=== PATIENT | male | born 1955 | race Caucasian/White ===

== ENCOUNTER 2017-08-17 15:00 | Inpatient (IN) | payer MEDICARE, MEDICAID ==
[2017-08-17 15:35] LABS: BASOPHILS % (AUTO) 0.4 %; EOSINOPHILS % (AUTO) 0.6 %; HGB - HEMOGLOBIN 8.3 g/dL (14.0-18.0); LYMPHOCYTES # (AUTO) 1.7 10^3/uL (1.5-3.5); LYMPHOCYTES % (AUTO) 30.8 %; MEAN CORPUSCULAR HEMOGLOBIN 32.3 pg (27.0-31.0); MEAN CORPUSCULAR HGB CONC 34.6 g/dL (32.0-36.0); MEAN CORPUSCULAR VOLUME 93.5 fL (80.0-94.0); MEAN PLATELET VOLUME 7.3 fL (7.4-11.4); MONOCYTES # (AUTO) 0.5 10^3/uL (0.0-1.0); MONOCYTES % (AUTO) 8.1 %; NEUTROPHILS # (AUTO) 3.4 10^3/uL (1.5-6.6); NEUTROPHILS % (AUTO) 60.1 %; PLT - PLATELET COUNT 212 10^3/uL (130-450); RED BLOOD COUNT 2.57 10^6/uL (4.70-6.10); RED CELL DISTRIBUTION WIDTH 13.3 % (12.0-15.0); WHITE BLOOD COUNT 5.6 x10^3/uL (4.8-10.8)
[2017-08-17 15:43] LABS: ALBUMIN/GLOBULIN RATIO 1.4 (1.0-2.2); BILIRUBIN,TOTAL 0.5 mg/dL (0.2-1.0); CALCIUM 8.7 mg/dL (8.5-10.3); CREATININE 0.7 mg/dL (0.6-1.2); TOTAL PROTEIN 6.9 g/dL (6.7-8.2)
[2017-08-17 17:30] LABS: INR 1.1 (0.8-1.2); PT - PROTHROMBIN TIME 12.7 secs (9.9-12.6)
[2017-08-17] MEDS ORDERED: PANTOPRAZOLE 40 MG VIAL IVP STA (17:47)
--- NOTE | 2017-08-17 17:47 | ED Physician Documentation ---
PD HPI GI BLEED - Stated complaint Stated Complaint: SOA/FATIGUE/ABD BLOATING - Chief complaint Chief Complaint: General - History obtained from History obtained from: Patient, Family - History of Present Illness Timing - onset: How many days ago (3) Timing - duration: Days (3) Timing - details: Gradual onset Pain level max: 0 Pain level now: 0 Associated symptoms: Black/tarry stool Contributing factors: No: Sick contact, Bad food, Travel, Recent antibiotics, Alcohol use, Aspirin use, NSAID use, Stress, Anticoagulated, Diabetes Improved by: Other (rest) Worsened by: Other (walking) Similar symptoms before: Has not had sx before Recently seen: Not recently seen - Additional information Additional information: Patient is a 61-year-old male who presents to the emergency department with dark tarry stools for the past several days. Now unable to walk more than a few feet without feeling short of breath and having to stop. States he had a colonoscopy approximately 17 years ago that was normal. Does not currently have a PCP. Is on no medications. Review of Systems Ten Systems: 10 systems reviewed and negative Constitutional: denies: Fever, Chills Ears: denies: Ear pain Nose: denies: Rhinorrhea / runny nose, Congestion Throat: denies: Sore throat Skin: denies: Rash Musculoskeletal: denies: Neck pain, Back pain Neurologic: reports: Generalized weakness. denies: Headache PD PAST MEDICAL HISTORY - Past Medical History Past Medical History: Yes Psych: Anxiety - Present Medications Home Medications: Ambulatory Orders Medication Instructions Recorded Confirmed No Known Home Medications [No 08/17/17 08/17/17 Known Home Medications] - Allergies Allergies/Adverse Reactions: Allergies Allergy/AdvReac Type Severity Reaction Status Date / Time carisoprodol [From Soma] Allergy Anaphylaxis Verified 08/17/17 19:22 fenoprofen [From Nalfon] Allergy Anaphylaxis Verified 08/17/17 19:23 - Social History Does the pt smoke?: No Smoking Status: Never smoker PD ED PE NORMAL - Vitals Vital signs reviewed: Yes - General General: Alert and oriented X 3, No acute distress, Well developed/nourished - HEENT HEENT: PERRL, Moist mucous membranes - Neck Neck: Supple, no meningeal sign - Cardiac Cardiac: RRR, Strong equal pulses - Respiratory Respiratory: No respiratory distress, Clear bilaterally - Abdomen Abdomen: Soft, Non tender, Non distended - Rectal Rectal: Other (+ hemoccult, QC passed. Dark stool.) - Derm Derm: Warm and dry - Extremities Extremities: No edema - Neuro Neuro: Alert and oriented X 3 - Psych Psych: Normal mood, Normal affect Results - Vitals Vitals: Vital Signs - 24 hr 08/17/17 15:10 Temperature 37.0 C Heart Rate 72 Respiratory 14 Rate Blood Pressure 127/89 H O2 Saturation 100 Oxygen O2 Source Room air - EKG (time done) 1519 Rate: Rate (enter#) (70) Rhythm: NSR [place]: Normal Intervals: Normal [place] QRS: Normal Ischemia: Normal ST segments Computer interpretation: Agree with computer - Labs Labs: Laboratory Tests 08/17/17 08/17/17 08/17/17 15:24 15:24 15:24 WBC 5.6 RBC 2.57 L Hgb 8.3 L Hct 24.1 L MCV 93.5 MCH 32.3 H MCHC 34.6 RDW 13.3 Plt Count 212 MPV 7.3 L Neut # 3.4 Lymph # 1.7 [place] # 0.5 Eos # 0.0 Baso # 0.0 Absolute Nucleated RBC 0.00 Nucleated RBC % 0.0 PT INR APTT Sodium 135 Potassium 3.4 L Chloride 102 Carbon Dioxide 24 Anion Gap 9.0 BUN 18 Creatinine 0.7 Estimated GFR (MDRD) 114 Glucose 105 H Calcium 8.7 Total Bilirubin 0.5 AST 25 ALT 40 Alkaline Phosphatase 46 Troponin I < 0.04 Total Protein 6.9 Albumin 4.0 Globulin 2.9 Albumin/Globulin Ratio 1.4 Lipase 24 Urine Color Urine Clarity Urine pH Ur Specific [place] Urine Protein Urine Glucose (UA) Urine Ketones Urine Occult Blood Urine Nitrite Urine Bilirubin Urine Urobilinogen Ur Leukocyte Esterase Ur Microscopic Review Urine Culture Comments Blood Type Antibody Screen 08/17/17 08/17/17 08/17/17 15:24 17:09 17:40 WBC RBC Hgb Hct MCV MCH MCHC RDW Plt Count MPV Neut # Lymph # [place] # Eos # Baso # Absolute Nucleated RBC Nucleated RBC % PT 12.7 H INR 1.1 APTT 27.6 Sodium Potassium Chloride Carbon Dioxide Anion Gap BUN Creatinine Estimated GFR (MDRD) Glucose Calcium Total Bilirubin AST ALT Alkaline Phosphatase Troponin I Total Protein Albumin Globulin Albumin/Globulin Ratio Lipase Urine Color YELLOW Urine Clarity CLEAR Urine pH 5.5 Ur Specific [place] 1.025 Urine Protein NEGATIVE Urine Glucose (UA) NEGATIVE Urine Ketones NEGATIVE Urine Occult Blood NEGATIVE Urine Nitrite NEGATIVE Urine Bilirubin NEGATIVE Urine Urobilinogen 0.2 (NORMAL) Ur Leukocyte Esterase NEGATIVE Ur Microscopic Review NOT INDICATED Urine Culture Comments NOT INDICATED Blood Type O POSITIVE Antibody Screen NEGATIVE PD MEDICAL DECISION MAKING - ED course Complexity details: reviewed results, re-evaluated patient, considered differential, d/w patient, d/w database consultant ED course: Patient is a 61-year-old gentleman who presents to the emergency department with increasing weakness and difficulty breathing with only a few steps. Appears to be symptomatic anemia from a GI bleed. Likely upper GI bleed. Given Protonix here. Type and screened. Discussed the case with Dr. Feliz, general surgery on-call who will consult. Also discussed the case with the hospitalist who accepts. This document was made in part using voice recognition software. While efforts are made to proofread this document, sound alike and grammatical errors may occur. Departure - Departure Disposition: 64 [facility] DC/Xfer Clinical Impression: Symptomatic anemia GI bleed Qualifiers: GI bleed type/associated pathology: melena Qualified Code(s): K92.1 - Melena Condition: Stable Discharge Date/Time: 08/17/17 19:05
[2017-08-17 17:54] LABS: BILIRUBIN,URINE NEGATIVE (NEGATIVE); GLUCOSE, URINE (UA) NEGATIVE (NEGATIVE); KETONES,URINE (UA) NEGATIVE (NEGATIVE); LEUKOCYTE ESTERASE, URINE NEGATIVE (NEGATIVE); NITRITE,URINE NEGATIVE (NEGATIVE); OCCULT BLOOD,URINE NEGATIVE (NEGATIVE); PH,URINE 5.5 PH (5.0-7.5); PROTEIN,URINE NEGATIVE (NEGATIVE); UROBILINOGEN,URINE 0.2 (NORMAL) E.U./dL (NORMAL)
[2017-08-17 17:55] LABS: CLARITY,URINE CLEAR (CLEAR)
[2017-08-17] MEDS ORDERED: TEMAZEPAM 15 MG CAPSULE PO PRN (18:09)
[2017-08-17] MEDS ORDERED: MORPHINE 2 MG/ML SYRINGE IVP PRN (18:09)
[2017-08-17] MEDS ORDERED: PROCHLORPERAZINE 10 MG/2 ML VIAL IVP PRN (18:09)
[2017-08-17] MEDS ORDERED: BISACODYL 5 MG TABLET PO SCH (19:01)
--- NOTE | 2017-08-17 19:10 | CONSULTATION NOTE ---
Referring Provider Name of Referring Provider:: Dr. Zhang Consult Date: 08/17/17 Chief Complaint - Chief Complaint Chief Complaint: Black stools and fatigue History of Present Illness - Admitted From Admitted From:: ER - History Obtained From Records Reviewed: yes History obtained from: pt Exam Limitations: none - History of Present Illness HPI Comment/Other: 61 yo male with hx of black tarry stools beginning 5 days ago, one per day, until 2 days ago, when he noted no further bms. He noted progressive fatigue and weakness, with some abdominal bloating, but no BRBPR, N/V, hematemesis, food intolerance, hx PUD, or wt loss. He reports using aspirin 325-650 mg orally approximately 3 x per week for joint aches. He denies other use of NSAIDs , prednisone, tobacco. Alcohol intake is less than 1 beer/day. FH colon cancer in his father, diagnosed at unknown age. His only prior colonoscopy was in 2003 and was reportedly nl. No prior similar sx. History - Past Medical History Respiratory: reports: Asthma (mild, takes no meds for this) Neuro: reports: None Endocrine/Autoimmune: reports: None GI: reports: None. denies: GERD, Ulcers, Colon polyps, Chronic diarrhea, Chronic constipation, Hepatitis Psych: reports: Anxiety Musculoskeletal: reports: Osteoarthritis MRSA Hx?: No - Past Surgical History General: reports: Colonoscopy (2004, [facility], OR, nl) Ortho: reports: Other (foot surgery, left index finger ORIF.) Cardiovascular: reports: Cardiac catheterization (in 2003, reportedly neg.) - Family & Social History Family History: Father: (colon cancer) Living arrangement: At home Living Situation: With friend(s) - Substance History Use: Uses substance without health or social issues: Alcohol Abuse: Recurrent use of substance despite neg consequences: NONE Dependence: Experiences withdrawal or developed tolerances: NONE - POLST Patient has POLST: No POLST Status: Full Code Meds/Allgy - Home Medications Home Medications: Ambulatory Orders Medication Instructions Recorded Confirmed No Known Home Medications [No 08/17/17 08/17/17 Known Home Medications] - Allergies Allergies/Adverse Reactions: Allergies Allergy/AdvReac Type Severity Reaction Status Date / Time carisoprodol [From Soma] Allergy Anaphylaxis Verified 08/17/17 19:22 fenoprofen [From Nalfon] Allergy Anaphylaxis Verified 08/17/17 19:23 Review of Systems - Constitutional Constitutional: reports: Fatigue, Malaise - Cardiovascular Cariovascular: reports: Exertional dyspnea (past few days). denies: Chest pain , Syncope - Respiratory Respiratory: denies: Cough, Hemoptysis - Gastrointestinal Gastrointestinal: reports: Abdominal distention, Black stools, Bloating. denies : Abdominal pain, Constipation, Diarrhea, Rectal bleeding, Bloody stools, Nausea , Vomiting, Coffee grounds emesis, Reflux/heartburn - Musculoskeletal Musculoskeletal: reports: Joint pain - Hematologic/Lymphatic Hematologic/Lymphatic: denies: Bruising, Blood clots, Bleeding tendencies - All Other Systems All Other Systems: reports: Reviewed and negative Exam - Vital Signs Vital Signs: Vital Signs x48h Temp Pulse Pulse Resp BP BP Pulse Ox 08/17/17 19:02 36.7 C 62 18 132/70 H 100 08/17/17 15:10 37.0 C 72 14 127/89 H 100 - Physical Exam General Appearance: positive: No acute distress, Alert Eyes Bilateral: positive: Conjunctivae nml, No scleral icterus ENT: positive: Pharynx nml, No signs of dehydration. negative: Pharyngeal erythema Neck: positive: Nml inspection. negative: Lymphadenopathy (R), Lymphadenopathy (L) Respiratory: positive: Chest non-tender, No respiratory distress, Breath sounds nml. negative: Wheezes, Rales, Rhonchi Cardiovascular: positive: Regular rate & rhythm, No murmur, No gallop Peripheral Pulses: positive: 2+ Abdomen: positive: Non-tender, No organomegaly, Nml bowel sounds, No distention. negative: Tenderness, Guarding, Rebound, Hepatomegaly, Splenomegaly , Mass Rectal: positive: Stool - heme POS Back: positive: Nml inspection. negative: CVA tenderness (R), CVA tenderness (L ) Skin: positive: Warm, Dry, Pallor. negative: Cyanosis Extremities: positive: Non-tender, No pedal edema. negative: Calf tenderness Neurologic/Psychiatric: positive: Oriented x3 Conclusion/Plan - Diagnosis Diagnosis: 1. GI bleed/melena, clinically stable at this time with no evidence of active bleeding. Upper and lower gi sources should be considered, including PUD, H.pylori gastritis, NSAID gastropathy, upper/lower gi tract neoplasm, angiodysplasia, etc. 2. Anemia, due to blood loss, sx. 3. FH Colon ca in 1st degree relative; this may increase his risk for same. - Plan Plan: Rec: bowel prep tonight for EGD/colon tomorrow. Consider empiric PPI therapy in interim. Transfuse as necessary for sx or worsening anemia. Thanks for allowing me to participate in Mr. Escobar's care. - Lab Results Fish Bones: 08/17/17 15:24 08/17/17 15:24
[2017-08-17] MEDS: D5.45NS W/20 MEQ KCL 1,000 ML IV SCH (19:15)
--- NOTE | 2017-08-17 19:24 | HISTORY & PHYSICAL EXAMINATION ---
Chief Complaint - Chief Complaint Chief Complaint: shortness of breath History of Present Illness - Admitted From Admitted From:: Home - History Obtained From Records Reviewed: yes History obtained from: patient, ER physician Exam Limitations: none noted - History of Present Illness HPI Comment/Other: Mr. Christophe Roy is a very pleasant 61-year-old gentleman who has a history of shortness of breath and weakness over the last several days. He also noticed he has been having dark tarry stools for the last couple of weeks this seems to wax and wane. The patient's last colonoscopy was about 15 years ago. When he had increasing shortness of breath that did not go away he presented to the [facility] emergency department where he was diagnosed with anemia and a hemoglobin of 8. Of note ids that the patient's father of colon cancer. He is admitted for symptom management and for an upper and lower endoscopy which will be done tomorrow with Dr. Kvng Feliz. History - Past Medical History Respiratory: reports: Asthma (mild, takes no meds for this) Neuro: reports: None Endocrine/Autoimmune: reports: None GI: reports: None. denies: GERD, Ulcers, Colon polyps, Chronic diarrhea, Chronic constipation, Hepatitis Psych: reports: Anxiety Musculoskeletal: reports: Osteoarthritis MRSA Hx?: No - Past Surgical History General: reports: Colonoscopy (2004, [facility], OR, nl) Ortho: reports: Other (foot surgery, left index finger ORIF.) Cardiovascular: reports: Cardiac catheterization (in 2003, reportedly neg.) - Family & Social History Family History: Mother: (colon cancer), Father: Family History Comment/Other: The patient says he does not know very much more about his family history as his family does not talk about such things. He does not know how his mother . Living arrangement: At home Living Situation: With friend(s) - Substance History Use: Uses substance without health or social issues: Alcohol Abuse: Recurrent use of substance despite neg consequences: NONE Dependence: Experiences withdrawal or developed tolerances: NONE - POLST Patient has POLST: No POLST Status: Full Code Meds/Allgy - Home Medications Home Medications: Ambulatory Orders Medication Instructions Recorded Confirmed No Known Home Medications [No 08/17/17 08/17/17 Known Home Medications] - Allergies Allergies/Adverse Reactions: Allergies Allergy/AdvReac Type Severity Reaction Status Date / Time Unable to Assess Allergy Verified 08/17/17 15:14 Review of Systems - Constitutional Constitutional: reports: Fatigue, Weakness. denies: Fever, Chills, Malaise - Eyes Eyes: denies: Pain, Irritation, Amaurosis, Blurred vision, Dipolpia - Ears, Nose & Throat Ears, Nose & Throat: denies: Ear pain, Tinnitus, Vertigo, Nasal discharge, Sore throat - Cardiovascular Cariovascular: reports: Exertional dyspnea, Decr. exercise tolerance - Respiratory Respiratory: reports: SOB at rest, SOB with exertion. denies: Cough, Sputum production, Wheezing, Hemoptysis - Gastrointestinal Gastrointestinal: denies: Abdominal pain, Constipation, Diarrhea, Change in bowel habits, Rectal bleeding - Genitourinary Genitourinary: denies: Dysuria, Frequency, Urgency, Hematuria - Musculoskeletal Musculoskeletal: denies: Muscle pain, Back pain, Muscle aches, Stiffness - Integumentary Integumentary: denies: Rash, Pruritis, Lesions, Dryness - Neurological Neurological: denies: General weakness, Focal weakness, Headache, Dizziness - Psychiatric Psychiatric: denies: Depression, Anxiety, Suicidal, Hallucinations - Endocrine Endocrine: denies: Polyuria, Polydypsia, Polyphagia - Hematologic/Lymphatic Hematologic/Lymphatic: denies: Anemia, Bruising, Petechiae, Lymphadenopathy - All Other Systems All Other Systems: reports: Reviewed and negative Exam - Vital Signs Reviewed Vital Signs: Yes Vital Signs: Vital Signs x48h Temp Pulse Pulse Resp BP BP Pulse Ox 08/17/17 19:02 36.7 C 62 18 132/70 H 100 08/17/17 15:10 37.0 C 72 14 127/89 H 100 - Physical Exam General Appearance: positive: No acute distress, Alert Eyes Bilateral: positive: Normal inspection, PERRL, EOMI, No lid inflammation, No scleral icterus, Other (Conjunctivae is pale) ENT: positive: ENT inspection nml, Pharynx nml, No signs of dehydration Neck: positive: Nml inspection, Thyroid nml, No JVD, Trachea midline. negative : Thyromegaly Respiratory: positive: Chest non-tender, No respiratory distress, Breath sounds nml. negative: Wheezes, Rales, Rhonchi Cardiovascular: positive: Regular rate & rhythm, No murmur, No gallop Peripheral Pulses: positive: 1+ Abdomen: positive: Non-tender, No organomegaly, Nml bowel sounds, No distention. negative: Guarding, Rebound, Mass Rectal: positive: Stool - heme POS Back: positive: Nml inspection. negative: CVA tenderness (R), CVA tenderness (L ) Skin: positive: Color nml, No rash, Warm, Dry. negative: Cyanosis Extremities: positive: Non-tender, Full ROM, Nml appearance, No pedal edema Neurologic/Psychiatric: positive: Oriented x3, CN's nml (2-12), Motor nml, Sensation nml, Mood/affect nml Conclusion/Plan - Problem List (1) GI bleed Conclusion/Plan: Patient will undergo an upper and lower endoscopy with Dr. Kvng Feliz tomorrow. We will address any other issues that arise following the procedure. Qualifiers: GI bleed type/associated pathology: melena Qualified Code(s): K92.1 - Melena (2) Symptomatic anemia Conclusion/Plan: We will place the patient in her medical surgical bed on supplemental oxygen and If necessary we will transfuse the patient. - Lab Results Lab results reviewed: Yes Fish Bones: 08/17/17 15:24 08/17/17 15:24 Core Measures - Anticipated LOS I expect patient to be DC'd or transferred within 96 hours.: Yes - DVT/VTE - Prophylaxis VTE/DVT Device ordered at admit?: Yes
[2017-08-17] MEDS ORDERED: POLYETHYLENE GLYCOL 3350 17 GM PACKET PO SCH (20:00)
[2017-08-17] MEDS ORDERED: FAMOTIDINE 20 MG/50 ML 50 ML IV SCH (21:00)
[2017-08-17] MEDS: SODIUM/POTASSIUM/MAG SULFATES 354 ML PREP KIT PO SCH (21:26)
[2017-08-18] MEDS: SODIUM CHLORIDE FLUSH 0.9% 10 ML SYRINGE IVP SCH ×3 (00:58→20:23)
[2017-08-18 05:05] LABS: BASOPHILS % (AUTO) 0.6 %; EOSINOPHILS # (AUTO) 0.1 10^3/uL (0.0-0.7); EOSINOPHILS % (AUTO) 1.8 %; HGB - HEMOGLOBIN 7.6 g/dL (14.0-18.0); LYMPHOCYTES % (AUTO) 43.9 %; MEAN CORPUSCULAR HEMOGLOBIN 32.4 pg (27.0-31.0); MEAN CORPUSCULAR HGB CONC 34.4 g/dL (32.0-36.0); MEAN PLATELET VOLUME 7.5 fL (7.4-11.4); MONOCYTES # (AUTO) 0.4 10^3/uL (0.0-1.0); MONOCYTES % (AUTO) 9.6 %; NEUTROPHILS % (AUTO) 44.1 %; PLT - PLATELET COUNT 182 10^3/uL (130-450); RED BLOOD COUNT 2.34 10^6/uL (4.70-6.10); RED CELL DISTRIBUTION WIDTH 13.1 % (12.0-15.0); WHITE BLOOD COUNT 4.5 x10^3/uL (4.8-10.8)
[2017-08-18] MEDS: SODIUM/POTASSIUM/MAG SULFATES 354 ML PREP KIT PO SCH (05:10)
[2017-08-18 05:11] LABS: CALCIUM 8.4 mg/dL (8.5-10.3); CREATININE 0.8 mg/dL (0.6-1.2)
[2017-08-18] MEDS: D5.45NS W/20 MEQ KCL 1,000 ML IV SCH ×2 (06:40→14:53)
[2017-08-18] MEDS: PANTOPRAZOLE 40 MG VIAL IVP SCH ×2 (08:18→20:23)
[2017-08-18] MEDS ORDERED: POLYETHYLENE GLYCOL 3350 17 GM PACKET PO SCH (09:00)
[2017-08-18] MEDS ORDERED: PROPOFOL 200 MG/20 ML VIAL IVP ONE (12:00)
[2017-08-18] MEDS ORDERED: LIDOCAINE-MPF 2% 5 ML VIAL IM ONE (12:00)
[2017-08-18] MEDS ORDERED: LACTATED RINGERS 1,000 ML IV ONE (12:04)
--- NOTE | 2017-08-18 16:06 | PROVIDER PROGRESS NOTE ---
Assessment/Plan - Problem List (1) GI bleed Qualifiers: GI bleed type/associated pathology: melena Qualified Code(s): K92.1 - Melena Assessment/Plan: patient presented with melena, generalized weakness and shortness of breath Hb was 8.3 on presentation Concern for likely GI bleed SUrgery consulted Patient on IV protonix BID Hb this morning down to 7.6 Transfuse if hb less than 7 EGD and colonoscopy today Will continue IV protonix for 24 more hours and monitor H&H Stools appear to be brown this am (2) Symptomatic anemia Assessment/Plan: Secondary to GI bleed Monitor hb if less than 7 transfuse Treat as per number 1 - Current Meds Current Meds: Current Medications Generic Name Dose Route Start Last Admin Trade Name Freq PRN Reason Stop Dose Admin Potassium Chloride/Dextrose/Sod Cl 1,000 mls @ 100 mls/hr 08/17/17 19:00 14:53 D5.45ns W/20 Meq Kcl IV 100 mls/hr .Q10H JACINTO Administration Pantoprazole Sodium 40 mg 08/18/17 09:00 08/18/17 08:18 Protonix IVP 40 mg BID JACINTO Administration Sodium Chloride 10 ml 08/18/17 01:00 08/18/17 08:18 Normal Saline Flush 0.9% IVP 10 ml [id number] JACINTO Administration - Lab Result Lab results reviewed: Yes Fish Bone Diagrams: 08/18/17 04:40 08/18/17 04:25 - Additional Planning Condition/Complexity: Guarded My Orders: My Active Orders 08/18/17 09:00 Pantoprazole [Protonix] 40 mg IVP BID Consult/Specialty: Surgery Plan Discussed with:: Patient Time Spent: 31-60 minutes Subjective - Subjective Patient Reports: Dizzines (Improved), Fatigue, Shortness of Breath (With exertion), Other (Stools were brown this am no bloody stools overnight.) Nursing Reports: No Complaints Objective Vital Signs: Vital Signs - 24 hr 08/17/17 08/17/17 08/18/17 19:02 23:35 08:00 Temperature 36.7 C 36.6 C 36.6 C Heart Rate [ 62 61 65 Radial] Respiratory 18 18 18 Rate Blood Pressure 132/70 H 124/75 106/69 [Right Brachial artery] O2 Saturation 100 98 98 08/18/17 08/18/17 08/18/17 12:53 12:58 13:03 Temperature Heart Rate [ Radial] Respiratory Rate Blood Pressure [Right Brachial artery] O2 Saturation 100 98 98 08/18/17 08/18/17 08/18/17 13:08 13:19 14:30 Temperature 36.3 C L 36.4 C L Heart Rate [ 58 L 56 L Radial] Respiratory 16 18 Rate Blood Pressure 104/64 98/62 [Right Brachial artery] O2 Saturation 100 100 100 08/18/17 08/18/17 14:31 15:25 Temperature 36.4 C L 36.4 C L Heart Rate [ 61 65 Radial] Respiratory 17 18 Rate Blood Pressure 115/66 119/64 [Right Brachial artery] O2 Saturation 99 100 Oxygen O2 Source Room air I&O (Last 24 Hrs): Intake and Output Totals x24h 08/16/17 08/17/17 08/18/17 23:59 23:59 23:59 Intake Total 790 1633 Balance 790 1633 General: Alert, Oriented x3, Cooperative, No acute distress HEENT: Atraumatic, PERRLA, EOMI, Other (Dry mucus membranes) Neck: Supple, No JVD, No thyromegaly, +2 carotid pulse wo bruit Lymphatic: no adenopathy Neuro: Alert, Non Focal, CN 2-12 Grossly Intact, Oriented Times 3 Cardiovascular: Regular rate, Normal S1, Normal S2, No murmurs Respiratory: Chest non-tender, No respiratory distress, Breath sounds nml Abdomen: Normal bowel sounds, Soft, No tenderness, No hepatospenomegaly, No masses Extremities: No clubbing, No cyanosis, No edema, Normal pulses Skin: No rashes, No breakdown Comments/Notes: Pallor - Results Results: Laboratory Results WBC 4.5 x10^3/uL (4.8-10.8) L 08/18/17 04:40 RBC 2.34 10^6/uL (4.70-6.10) L 08/18/17 04:40 Hgb 7.6 g/dL (14.0-18.0) L 08/18/17 04:40 Hct 22.0 % (42.0-52.0) L 08/18/17 04:40 MCV 94.0 fL (80.0-94.0) 04/17/18 04:40 MCH 32.4 pg (27.0-31.0) H 08/18/17 04:40 MCHC 34.4 g/dL (32.0-36.0) 08/18/17 04:40 RDW 13.1 % (12.0-15.0) 08/18/17 04:40 Plt Count 182 10^3/uL (130-450) 08/18/17 04:40 MPV 7.5 fL (7.4-11.4) 08/18/17 04:40 Neut # 2.0 10^3/uL (1.5-6.6) 08/18/17 04:40 Lymph # 2.0 10^3/uL (1.5-3.5) 08/18/17 04:40 [place] # 0.4 10^3/uL (0.0-1.0) 08/18/17 04:40 Eos # 0.1 10^3/uL (0.0-0.7) 08/18/17 04:40 Baso # 0.0 10^3/uL (0.0-0.1) 08/18/17 04:40 Absolute Nucleated RBC 0.00 x10^3/uL 08/18/17 04:40 Nucleated RBC % 0.0 /100WBC 08/18/17 04:40 PT 12.7 secs (9.9-12.6) H 08/17/17 15:24 INR 1.1 (0.8-1.2) 08/17/17 15:24 APTT 27.6 secs (24.9-33.3) 08/17/17 15:24 Sodium 138 mmol/L (135-145) 08/18/17 04:25 Potassium 3.5 mmol/L (3.5-5.0) 08/18/17 04:25 Chloride 105 mmol/L (101-111) 08/18/17 04:25 Carbon Dioxide 27 mmol/L (21-32) 08/18/17 04:25 Anion Gap 6.0 (6-13) 08/18/17 04:25 BUN 13 mg/dL (6-20) 08/18/17 04:25 Creatinine 0.8 mg/dL (0.6-1.2) 08/18/17 04:25 Estimated GFR (MDRD) 98 (>89) 08/18/17 04:25 Glucose 108 mg/dL (70-100) H 08/18/17 04:25 Calcium 8.4 mg/dL (8.5-10.3) L 08/18/17 04:25 Total Bilirubin 0.5 mg/dL (0.2-1.0) 08/17/17 15:24 AST 25 IU/L (10-42) 08/17/17 15:24 ALT 40 IU/L (10-60) 08/17/17 15:24 Alkaline Phosphatase 46 IU/L (42-121) 08/17/17 15:24 Troponin I < 0.04 ng/mL (<0.49) 08/17/17 15:24 Total Protein 6.9 g/dL (6.7-8.2) 08/17/17 15:24 Albumin 4.0 g/dL (3.2-5.5) 08/17/17 15:24 Globulin 2.9 g/dL (2.1-4.2) 08/17/17 15:24 Albumin/Globulin Ratio 1.4 (1.0-2.2) 08/17/17 15:24 Lipase 24 U/L (22-51) 08/17/17 15:24 Urine Color YELLOW 08/17/17 17:40 Urine Clarity CLEAR (CLEAR) 08/17/17 17:40 Urine pH 5.5 PH (5.0-7.5) 08/17/17 17:40 Ur Specific [place] 1.025 (1.002-1.030) 08/17/17 17:40 Urine Protein NEGATIVE mg/dL (NEGATIVE) 08/17/17 17:40 Urine Glucose (UA) NEGATIVE mg/dL (NEGATIVE) 08/17/17 17:40 Urine Ketones NEGATIVE mg/dL (NEGATIVE) 08/17/17 17:40 Urine Occult Blood NEGATIVE (NEGATIVE) 08/17/17 17:40 Urine Nitrite NEGATIVE (NEGATIVE) 08/17/17 17:40 Urine Bilirubin NEGATIVE (NEGATIVE) 08/17/17 17:40 Urine Urobilinogen 0.2 (NORMAL) E.U./dL (NORMAL) 08/17/17 17:40 Ur Leukocyte Esterase NEGATIVE (NEGATIVE) 08/17/17 17:40 Ur Microscopic Review NOT INDICATED 08/17/17 17:40 Urine Culture Comments NOT INDICATED 08/17/17 17:40 Blood Type O POSITIVE 08/17/17 17:09 Antibody Screen NEGATIVE 08/17/17 17:09
[2017-08-18 20:41] LABS: BASOPHILS % (AUTO) 0.5 %; EOSINOPHILS # (AUTO) 0.1 10^3/uL (0.0-0.7); EOSINOPHILS % (AUTO) 1.6 %; HGB - HEMOGLOBIN 7.7 g/dL (14.0-18.0); LYMPHOCYTES # (AUTO) 1.8 10^3/uL (1.5-3.5); LYMPHOCYTES % (AUTO) 39.2 %; MEAN CORPUSCULAR HEMOGLOBIN 32.6 pg (27.0-31.0); MEAN CORPUSCULAR HGB CONC 34.3 g/dL (32.0-36.0); MEAN PLATELET VOLUME 7.3 fL (7.4-11.4); MONOCYTES # (AUTO) 0.4 10^3/uL (0.0-1.0); MONOCYTES % (AUTO) 9.5 %; NEUTROPHILS # (AUTO) 2.3 10^3/uL (1.5-6.6); NEUTROPHILS % (AUTO) 49.2 %; PLT - PLATELET COUNT 203 10^3/uL (130-450); RED BLOOD COUNT 2.38 10^6/uL (4.70-6.10); RED CELL DISTRIBUTION WIDTH 13.4 % (12.0-15.0); WHITE BLOOD COUNT 4.6 x10^3/uL (4.8-10.8)
[2017-08-19] MEDS: SODIUM CHLORIDE FLUSH 0.9% 10 ML SYRINGE IVP SCH ×2 (00:14→07:28)
[2017-08-19] MEDS: SODIUM CHLORIDE FLUSH 0.9% 10 ML SYRINGE IVP PRN ×2 (00:25→09:27)
[2017-08-19] MEDS: D5.45NS W/20 MEQ KCL 1,000 ML IV SCH (01:36)
[2017-08-19 04:41] LABS: BASOPHILS % (AUTO) 0.3 %; EOSINOPHILS # (AUTO) 0.1 10^3/uL (0.0-0.7); EOSINOPHILS % (AUTO) 2.1 %; HGB - HEMOGLOBIN 7.6 g/dL (14.0-18.0); LYMPHOCYTES # (AUTO) 1.9 10^3/uL (1.5-3.5); LYMPHOCYTES % (AUTO) 36.9 %; MEAN CORPUSCULAR HEMOGLOBIN 32.8 pg (27.0-31.0); MEAN CORPUSCULAR HGB CONC 34.5 g/dL (32.0-36.0); MEAN CORPUSCULAR VOLUME 95.1 fL (80.0-94.0); MEAN PLATELET VOLUME 7.9 fL (7.4-11.4); MONOCYTES # (AUTO) 0.5 10^3/uL (0.0-1.0); MONOCYTES % (AUTO) 8.7 %; NEUTROPHILS # (AUTO) 2.7 10^3/uL (1.5-6.6); PLT - PLATELET COUNT 181 10^3/uL (130-450); RED BLOOD COUNT 2.33 10^6/uL (4.70-6.10); WHITE BLOOD COUNT 5.2 x10^3/uL (4.8-10.8)
[2017-08-19 04:52] LABS: ALBUMIN 3.2 g/dL (3.2-5.5); ALBUMIN/GLOBULIN RATIO 1.4 (1.0-2.2); ALKALINE PHOSPHATASE 46 IU/L (42-121); ALT ALANINE AMINOTRANSFERASE 23 IU/L (10-60); AST ASPARTATE AMINOTRANSFERASE 20 IU/L (10-42); BILIRUBIN,TOTAL 0.5 mg/dL (0.2-1.0); BUN - BLOOD UREA NITROGEN 12 mg/dL (6-20); CALCIUM 8.5 mg/dL (8.5-10.3); CARBON DIOXIDE - CO2 26 mmol/L (21-32); CHLORIDE 108 mmol/L (101-111); CREATININE 0.8 mg/dL (0.6-1.2); GFR - MDRD 98 (>89); GLUCOSE 115 mg/dL (70-100); SODIUM 138 mmol/L (135-145); TOTAL PROTEIN 5.5 g/dL (6.7-8.2)
--- NOTE | 2017-08-19 08:09 | Discharge Plan ---
Discharge Plan Disposition: 01 Home, Self Care Condition: Fair Prescriptions: Pantoprazole [Protonix] 40 mg PO DAILY #30 tablet Diet: Regular Activity Restrictions: No Restrictions Shower Restrictions: No Driving Restrictions: No Weight Bearing: Full Weight Additional Instructions or Follow Up instructions: You presented with black stools, fatigue, shortness of breath and weakness. You were found to have a non bleeding gastric ulcer. In order to treat this you will need to take a PPI called protonix 40 mg daily for at least 6 weeks. You will also need to avoid smoking, alcohol, NSAIDs (aleve, ibuprofen), aspirin, coffee and spicy foods. You will need to follow up with Dr Feliz of surgery for the results of biopsies taken of your stomach. No Smoking: If you smoke, Please STOP! Call for help. Follow-up with: Kvng Feliz MD [Provider Admit Priv/Credential] -
[2017-08-19 08:15] VITALS: BP 101/64
[2017-08-19] MEDS: PANTOPRAZOLE 40 MG VIAL IVP SCH (09:26)
--- NOTE | 2017-08-19 14:05 | DISCHARGE SUMMARY ---
"Discharge Summary Admit Date: 08/17/17 Discharge Date: 08/19/17 Discharging Provider: Bon Siegel MD Primary Care Provider: None Code Status: Attempt Resuscitation Condition at Discharge: Fair Discharge Disposition: 01 Home, Self Care - DIAGNOSES Admission Diagnoses: 1. Melena 2. Symptomatic anemia Discharge Diagnoses with Status of Each Condition: 1. Gastric ulcer: Nonbleeding stable 2. Melena: Resolved 3. Symptomatic anemia: Stable - HPI History of Present Illness: Mr. Christophe Roy is a very pleasant 61-year-old gentleman who has a history of shortness of breath and weakness over the last several days. He also noticed he has been having dark tarry stools for the last couple of weeks this seems to wax and wane. The patient's last colonoscopy was about 15 years ago. When he had increasing shortness of breath that did not go away he presented to the [facility] emergency department where he was diagnosed with anemia and a hemoglobin of 8. Of note ids that the patient's father of colon cancer. He is admitted for symptom management and for an upper and lower endoscopy which will be done tomorrow with Dr. Kvng Feliz. - CONSULTS | PROCEDURES Consultations: General Surgery: Kvng Feliz Procedures: EGD and Colonoscopy: EGD showed large gastric ulcer with no evidence of gastritis. No active bleeding Colonoscopy showed diverticulosis with no bleeding. Biopsies were taken around the gastric ulcer. - HOSPITAL COURSE Hospital Course: Patient was admitted to the [facility] and started on IV Protonix twice daily. Patient had serial H&H and hemoglobin dropped from 8.3-7.6. The patient had no further melanotic stools. He was taken for EGD and colonoscopy by surgery Dr. Kvng Feliz. The patient was found to have a large gastric ulcer with no surrounding gastritis or duodenitis. The ulcer was non-bleeding. Patient also was found to have diverticulosis but no active bleeding in the colon. The patient was monitored overnight and given an additional 24 hours of IV Protonix given the large ulcer. The patient did not require any blood transfusions. The patient's H&H remained stable overnight and he had no further melena. The patient was discharged home with oral Protonix which she will take daily for 6-8 weeks. There were biopsies taken of the patient's stomach and those will be reviewed by Dr. Kvng Feliz. The patient will follow up with Dr. Feliz in the surgery clinic in the next 1-2 weeks. The patient did not have a primary care physician but was given information on primary care physicians in the area and was told to follow-up for chronic medical problems with a PCP. The patient was advised to stop the use of aspirin and avoid use of any NSAIDs, cigarettes or alcohol. The patient was discharged in stable condition - ALLERGIES Allergies/Adverse Reactions: Allergies Allergy/AdvReac Type Severity Reaction Status Date / Time carisoprodol [From [facility]] Allergy Anaphylaxis Verified 08/17/17 19:22 fenoprofen [From [place]] Allergy Anaphylaxis Verified 08/17/17 19:23 - MEDICATIONS Home Medications: Ambulatory Orders Medication Instructions Recorded Confirmed Pantoprazole [Protonix] 40 mg PO DAILY #30 tablet 08/19/17 - PHYSICAL EXAM AT DISCHARGE General Appearance: positive: No acute distress, Alert Eyes Bilateral: positive: Normal inspection, PERRL, EOMI, No lid inflammation, Conjunctivae nml, No scleral icterus ENT: positive: ENT inspection nml, Pharynx nml, No signs of dehydration. negative: Purulent nasal drainage, Pharyngeal erythema, Oral lesions Neck: positive: Nml inspection, Thyroid nml, No JVD, Trachea midline. negative : Thyromegaly, Lymphadenopathy (R), Lymphadenopathy (L), Stiff neck, Carotid bruit, Tracheal deviation Respiratory: positive: Chest non-tender, No respiratory distress, Breath sounds nml. negative: Wheezes, Rales, Rhonchi Cardiovascular: positive: Regular rate & rhythm, No murmur, No gallop Peripheral Pulses: positive: 2+ Abdomen: positive: Non-tender, No organomegaly, Nml bowel sounds, No distention. negative: Guarding, Rebound, Hepatomegaly Back: positive: Nml inspection. negative: CVA tenderness (R), CVA tenderness (L ) Skin: positive: Color nml, No rash, Warm Extremities: positive: Non-tender, Full ROM, Nml appearance, No pedal edema Neurologic/Psychiatric: positive: Oriented x3, CN's nml (2-12), Motor nml, Sensation nml, Mood/affect nml - LABS Result Diagrams: 08/19/17 04:15 08/19/17 04:15 Other Lab Results: Laboratory Results WBC 5.2 x10^3/uL (4.8-10.8) 08/19/17 04:15 RBC 2.33 10^6/uL (4.70-6.10) L 08/19/17 04:15 Hgb 7.6 g/dL (14.0-18.0) L 08/19/17 04:15 Hct 22.2 % (42.0-52.0) L 08/19/17 04:15 MCV 95.1 fL (80.0-94.0) H 08/19/17 04:15 MCH 32.8 pg (27.0-31.0) H 08/19/17 04:15 MCHC 34.5 g/dL (32.0-36.0) 08/19/17 04:15 RDW 14.0 % (12.0-15.0) 08/19/17 04:15 Plt Count 181 10^3/uL (130-450) 08/19/17 04:15 MPV 7.9 fL (7.4-11.4) 08/19/17 04:15 Neut # 2.7 10^3/uL (1.5-6.6) 08/19/17 04:15 Lymph # 1.9 10^3/uL (1.5-3.5) 08/19/17 04:15 [place] # 0.5 10^3/uL (0.0-1.0) 08/19/17 04:15 Eos # 0.1 10^3/uL (0.0-0.7) 08/19/17 04:15 Baso # 0.0 10^3/uL (0.0-0.1) 08/19/17 04:15 Absolute Nucleated RBC 0.00 x10^3/uL 08/19/17 04:15 Nucleated RBC % 0.0 /100WBC 08/19/17 04:15 PT 12.7 secs (9.9-12.6) H 08/17/17 15:24 INR 1.1 (0.8-1.2) 08/17/17 15:24 APTT 27.6 secs (24.9-33.3) 08/17/17 15:24 Sodium 138 mmol/L (135-145) 08/19/17 04:15 Potassium 4.1 mmol/L (3.5-5.0) 08/19/17 04:15 Chloride 108 mmol/L (101-111) 08/19/17 04:15 Carbon Dioxide 26 mmol/L (21-32) 08/19/17 04:15 Anion Gap 4.0 (6-13) L 08/19/17 04:15 BUN 12 mg/dL (6-20) 08/19/17 04:15 Creatinine 0.8 mg/dL (0.6-1.2) 08/19/17 04:15 Estimated GFR (MDRD) 98 (>89) 08/19/17 04:15 Glucose 115 mg/dL (70-100) H 08/19/17 04:15 Calcium 8.5 mg/dL (8.5-10.3) 08/19/17 04:15 Ionized Calcium NO 08/19/17 04:15 Magnesium 2.0 mg/dL (1.7-2.8) 08/19/17 04:15 Total Bilirubin 0.5 mg/dL (0.2-1.0) 08/19/17 04:15 AST 20 IU/L (10-42) 08/19/17 04:15 ALT 23 IU/L (10-60) 08/19/17 04:15 Alkaline Phosphatase 46 IU/L (42-121) 08/19/17 04:15 Troponin I < 0.04 ng/mL (<0.49) 08/17/17 15:24 Total Protein 5.5 g/dL (6.7-8.2) L 08/19/17 04:15 Albumin 3.2 g/dL (3.2-5.5) 08/19/17 04:15 Globulin 2.3 g/dL (2.1-4.2) 08/19/17 04:15 Albumin/Globulin Ratio 1.4 (1.0-2.2) 08/19/17 04:15 Lipase 24 U/L (22-51) 08/17/17 15:24 Urine Color YELLOW 08/17/17 17:40 Urine Clarity CLEAR (CLEAR) 08/17/17 17:40 Urine pH 5.5 PH (5.0-7.5) 08/17/17 17:40 Ur Specific [place] 1.025 (1.002-1.030) 08/17/17 17:40 Urine Protein NEGATIVE mg/dL (NEGATIVE) 08/17/17 17:40 Urine Glucose (UA) NEGATIVE mg/dL (NEGATIVE) 08/17/17 17:40 Urine Ketones NEGATIVE mg/dL (NEGATIVE) 08/17/17 17:40 Urine Occult Blood NEGATIVE (NEGATIVE) 08/17/17 17:40 Urine Nitrite NEGATIVE (NEGATIVE) 08/17/17 17:40 Urine Bilirubin NEGATIVE (NEGATIVE) 08/17/17 17:40 Urine Urobilinogen 0.2 (NORMAL) E.U./dL (NORMAL) 08/17/17 17:40 Ur Leukocyte Esterase NEGATIVE (NEGATIVE) 08/17/17 17:40 Ur Microscopic Review NOT INDICATED 08/17/17 17:40 Urine Culture Comments NOT INDICATED 08/17/17 17:40 Blood Type O POSITIVE 08/17/17 17:09 Antibody Screen NEGATIVE 08/17/17 17:09 - DIAGNOSTIC IMAGING Diagnostic Imaging Results: Final report reviewed - FOLLOW UP Follow Up: The patient will follow up with Dr. Feliz in the surgical clinic in 1-2 weeks. Patient was also given information for PCPs on the [place] and will set up an appointment with a PCP of his choice. The patient was given Protonix for treatment of gastric ulcer and will follow-up for biopsy results. - TIME SPENT Time Spent in Discharge (Minutes): 40"
== END 2017-08-19 13:40 | disposition home or self-care (01) | DRG 379 ==
LOC: ED 15:00 → MS3 18:09
PROVIDERS: ADMIT Hospitalist; ATTEND Internal Medicine
PROC: 0DB68ZX Excision of Stomach, Via Natural or Artificial Opening Endoscopic, Diagnostic (ICD-10-PCS; principal; 2017-08-18 12:00)
PROC: 0DBN8ZZ Excision of Sigmoid Colon, Via Natural or Artificial Opening Endoscopic (ICD-10-PCS; 2017-08-18 12:00)
DX: K25.4 Chronic or unspecified gastric ulcer with hemorrhage (principal); K57.30 Diverticulosis of large intestine without perforation or abscess without bleeding; D50.0 Iron deficiency anemia secondary to blood loss (chronic); K63.5 Polyp of colon; J45.909 Unspecified asthma, uncomplicated; Z80.0 Family history of malignant neoplasm of digestive organs
CPT/HCPCS: 36415; 80048; 80053; 80061; 81001; 81003; 83036; 83690; 83721; 83735; 84443; 84484; 85025; 85610; 85730; 86803; 86850; 86900; 86901; 87086; 88305; 93005; 96374; 99283; 99284